=== PATIENT | female | born 1935 | race Caucasian/White ===

== ENCOUNTER 2017-01-16 09:32 | Inpatient (IN) | payer MEDICARE, OTHER ==
[~2017-01-16] VITALS: Ht 154.9 cm; Wt 59.5 kg
--- NOTE | ~2017-01-16 | DS ---
Discharge Summary [facility] [address] [place]. [address] NAME: ANYA WILLOUGHBY DAVIDE : 39 STATUS : DIS IN PAT#: [id number] AGE: 81 ADM/REG DATE : 01/16/17 MR#: [id number] REPORT SERV DATE: 01/27/17 DICTATED BY: KWAN MORRIS DATE: 01/27/17 REPORT STATUS : Draft TRANSCRIBED BY: MODL DATE: 01/27/17 ADMISSION DATE: 01/16/2017 DISCHARGE DATE: 01/27/2017 ADDENDUM: DISCHARGE DIAGNOSES: 1. Chronic hypoxic respiratory failure. 2. Healthcare-acquired pneumonia. 3. Dysphagia. 4. History of chronic obstructive pulmonary disease. 5. Amyloid angiopathy. 6. Coronary artery disease. 7. Deep vein thrombosis. 8. Heart failure with preserved ejection fraction. 9. Acute kidney injury on chronic kidney disease. 10.Urinary retention. 11.Microcytic anemia. 12.Anxiety and agitation. Please note that this is just an addendum to interim discharge summary dictated by Dr. Emiliano Holt. In summary, by the time I assumed care of this patient, the patient was already medically ready for discharge. The patient was eventually accepted to retirement facility where she will be discharged. Of note, the patient is discharged under a DNR status and the patient will continue to enjoy p.o. intake while she has failed swallow evaluation with the understanding of potential risk of recurrent aspiration pneumonia. It is understood that the patient will not be transferred back to the hospital in the event of natural appears to be taking place even related to possible aspiration pneumonia. There is nothing more to add to already excellent interim discharge summary dictated by Dr. Emiliano Holt. Total of 35 minutes spent in coordinating this patient's discharge today. [facility] [place] [facility] [place]PIETRO Kwan Morris MD / [id number] CC: MD Richardson Ro M.D.
--- NOTE | ~2017-01-16 | IDS ---
Interim Discharge Summary [facility] [address] [place]. [address] NAME: ANYA CLARKE OCTOBER : [birth year] STATUS : ADM IN [facility]#: [id number] AGE: 81 ADM/REG DATE : 01/16/17 MR#: [id number] REPORT SERV DATE: 01/26/17 DICTATED BY: JONNATHAN SARMIENTO DATE: 01/25/17 REPORT STATUS : Draft TRANSCRIBED BY: MODL DATE: 01/25/17 ADMISSION DATE: 01/16/2017 DISCHARGE DATE: DISCHARGE DIAGNOSES: 1. Chronic hypoxic respiratory failure. 2. Healthcare-acquired pneumonia. 3. History of chronic obstructive pulmonary disease. 4. Amyloid angiopathy. 5. Coronary artery disease. 6. Deep vein thrombosis. 7. Heart failure with preserved ejection fraction. 8. Acute kidney injury and chronic kidney disease. 9. Urinary retention. 10.Microcytic anemia. 11.Anxiety and agitation. IMAGIN. Chest x-ray on 01/16/2017 demonstrated diffuse interstitial and patchy alveolar infiltrates throughout both lungs. 2. Venous duplex of the lower extremities demonstrated DVT in the left popliteal vein which is nearly occlusive and a superficial thrombus in the right greater saphenous vein. 3. CTA of the chest demonstrated diffuse bilateral infiltrates or edema with pleural fluid, right greater than left, and COPD as well as nodular enlargement of the thyroid and no evidence for pulmonary emboli. 4. Swallowing study demonstrated deep laryngeal penetration with thin, nectar, and honey consistency. BRIEF HOSPITAL COURSE: Ms. Clarke is a 81-year-old female with a past medical history as stated above who presented as a transfer from [facility] [place] to the emergency department after she had a reported fever of over 100. She was recently admitted for pneumonia with hypoxic respiratory failure and placed in rehab following this. Of note, the family states that when she went to [facility], her swallowing evaluation was repeated and it was determined that she had no restrictions on her diet due to her swallowing. 1. Acute hypoxic respiratory failure secondary to healthcare-acquired pneumonia. The patient was treated initially with a combination of cefepime and vancomycin for healthcare-acquired pneumonia, this was deescalated to Ceftin to complete treatment of her healthcare-acquired pneumonia. At this time, she is still requiring 3 to 5 L of O2. 2. DVT. During the course of her hospitalization, her left lower extremity was noted to be significantly swollen. Doppler ultrasound demonstrated deep vein thrombosis. Plans for goals of care were discussed extensively with family, and given her history of amyloid angiopathy and concerns for potential intracerebral hemorrhage, an IVC filter was placed. 3. Heart failure with preserved ejection fraction. The patient did have an elevated BNP Interim Discharge Summary [facility] [id number] [place]. [address] NAME: ANYA CLARKE OCTOBER : 39 STATUS : ADM IN PAT#: [id number] AGE: 81 ADM/REG DATE : 01/16/17 MR#: [id number] REPORT SERV DATE: 01/26/17 DICTATED BY: JONNATHAN SARMIENTO DATE: 01/25/17 REPORT STATUS : Draft TRANSCRIBED BY: PIETRO DATE: 01/25/17 and prior echocardiogram did demonstrate some degree of diastolic dysfunction. She required some diuresis during her hospitalization here which was limited by her renal function. 4. ASHWINI on CKD. On arrival, the patient had a mildly elevated serum creatinine of 1.4 which resolved close to 1. 5. Urinary retention. The patient received a Nguyễn catheter on arrival for urinary retention; this was removed during her hospitalization. However, she became agitated and bladder scans noted over 200 mL in her bladder; at which time, a Nguyễn was restarted. She will likely need followup with Urology at a later date for her urinary retention. 6. Anxiety and agitation. Palliative Care was consulted as the patient continuously screams out that she needs help. However, on assisting her, she simply states that she wants to go home. She has received Ativan to assist in her anxiety from Palliative Care. I started Seroquel tonight due to her agitation. 7. Failed swallow study. The patient has been on a modified diet, was taking liquids; however, she persistently begs to have water. This was discussed at length with her son, John, as well as her sister, Jacqueline, who both agree that the patient's wishes to drink are consistent with what she would want if she were not confused. They have been advised of the risk of repeated aspiration pneumonia and the need for precautions; however, they state that if she has a pneumonia as a result of her aspiration that this is an acceptable risk, and she should not be transferred back to the hospital in the event of the natural appears to be taking place. She has also been made DNR as this discussion was also made regarding her care. DISPOSITION: Of note, the patient's sister Jacqueline has concerns over her son John and safety of discharge to his house. He has been repeatedly unavailable when we attempt to contact him, and she has concerns over his potential to become violent with other individuals and/or the possibility of drug use occurring within the house. Therefore, we are trying to get her to fdc facility in [place] which was our original goal given her need for significant physical therapy. [facility]/PIETRO LINDA SARMIENTO / [id number] CC: LINDA Holloway M.D.
--- NOTE | ~2017-01-16 | HP ---
History And Physical [place] [id number] [facility] [place]. [address] NAME: ANYA WILLOUGHBY OCTOBER : [birth year] STATUS : ADM IN [facility]#: [id number] AGE: 81 ADM/REG DATE : 01/16/17 MR#: [id number] REPORT SERV DATE: 01/16/17 DICTATED BY: YONG MAGUIRE DATE: 01/16/17 REPORT STATUS : Draft TRANSCRIBED BY: MODShantel DATE: 01/16/17 DATE OF ADMISSION: 01/16/2017 CHIEF COMPLAINT: Transfer from outside emergency department per family request with diagnosis of pneumonia. HISTORY OF PRESENT ILLNESS: This is a 81-year-old female with a medical history of amyloid angiopathy, history of CVA, history of melena, history of chronic anemia and history of type 2 diabetes and COPD and hypertension, history of lung cancer, status post lobectomy, history of urinary retention as well as a recent admission for bilateral pneumonia with hypoxic respiratory failure, who is accepted as a transfer from [facility] [place] at the Emergency Department there after she presented from her nursing facility this morning with onset of worsening hypoxic respiratory failure as well as a reported fever to 101 degrees Fahrenheit. The patient is accompanied by her son who helps relate some of the history. She has reportedly been living at the [facility] after her most recent discharge from [facility] at which time, she was treated for pneumonia. She does endorse a cough that is new over the past couple of days. It is productive of thick sputum though she denies any hemoptysis. As mentioned prior, she reportedly had a fever to 101 degrees Fahrenheit at her facility. She has chronic shortness of breath and says that this is unchanged and also has chronic hypoxic respiratory failure and does require supplemental oxygen at baseline. She specifically denies any chest pain currently or palpitations. She does have a headache but has not had any change in vision. She does arrive with an indwelling Nguyễn though she says this was placed at the outside emergency department and notes that over the past several days, she has had dysuria and frequency and carries a known diagnosis of urinary retention. She had been discharged with a Nguyễn catheter in place prior though her son reports that this had been removed at the nursing facility somewhat recently. She currently denies any diarrhea or vomiting but does have a little bit of nausea and denies any confusion in the setting of her history of encephalopathy. She does endorse swelling of the lower extremities with edema present bilaterally as well as orthopnea that is unchanged from her baseline. At the [facility] Emergency Department, she was found to have a leukocytosis with a white blood cell count of 18 and was also found to have an elevated BNP of 665 as well as a troponin of less than 0.03. Reportedly a chest x-ray was obtained and per the physician I spoke with, it was concerning for pneumonia, so she was administered ceftriaxone and azithromycin. Given her elevated BNP and her lower extremity edema, she was also administered 40 mg of IV Lasix prior to transfer. REVIEW OF SYMPTOMS: A 10-point review of systems was performed and was negative except that is stated in the history of present illness. PAST MEDICAL HISTORY: She has a history of coronary artery disease with stent placement in the past. She had been on Plavix and aspirin in the past though this has been discontinued History And Physical [address] [address] NAME: ANYA WILLOUGHBY OCTOBER : [birth year] STATUS : ADM IN [facility]#: [id number] AGE: 81 ADM/REG DATE : 01/16/17 MR#: [id number] REPORT SERV DATE: 01/16/17 DICTATED BY: YONG MAGUIRE DATE: 01/16/17 REPORT STATUS : Draft TRANSCRIBED BY: PIETRO DATE: 01/16/17 indefinitely as she has amyloid angiopathy per Neurology as it is at a very high risk for brain bleed. Insulin dependent diabetes; bilateral lower extremity neuropathic pain; hypothyroidism; history of lung cancer status post lobectomy; history of a right frontoparietal embolic stroke; history of right-sided carotid stenosis status post recent carotid endarterectomy; history of CKD stage 3 with a baseline creatinine prior at 1.4 to 1.5; hypertension; GERD; hyperlipidemia; possible history of seizure and was started on Keppra for that; history of COPD; history of rectal cancer; and history of recurrent encephalopathy as well as a recent history of bilateral pneumonia. PAST SURGICAL HISTORY: Includes a left upper lobectomy and right carotid endarterectomy, a thyroidectomy, and a rectal surgery. ALLERGIES: INCLUDE LEVAQUIN; LATEX; CODEINE; AND SINCE HER LAST ADMISSION, ANY SORT OF BLOOD THINNERS INCLUDING HEPARIN, ASPIRIN, PLAVIX, ETC. MEDICATIONS: Prior to admission, acetaminophen 650 mg suppository every 4 hours as needed for fever or headache; 10 mg of amlodipine daily; 80 mg of atorvastatin nightly; budesonide suspension inhaled 2 times daily; DuoNebs four times a day; gabapentin 300 mg at bedtime; 12.5 mg of hydrochlorothiazide daily; Keppra solution 100 mg/mL with 7.5 mL by mouth 2 times a day; 30 mg of lansoprazole capsule daily; 3 mg of melatonin nightly; 100 mg of metoprolol b.i.d.; milk of magnesia 30 mL every 24 hours as needed for constipation; guaifenesin 400 mg every 12 hours as needed for cough; nitroglycerin tablets sublingual p.r.n. for chest pain; sliding scale NovoLog; 20 mEq of potassium chloride extended release 1 tablet by mouth 2 times a day for abnormal labs; methimazole 5 mg by mouth 1 time a day; thiamine 100 mg by mouth daily; vitamin D tablet 1000 units 1 tablet by mouth 1 time a day; and ceftriaxone and azithromycin per the outside emergency department. SOCIAL HISTORY: She is residing at [facility]. She has a history of tobacco abuse, quit in the . She has not used any drugs or alcohol. 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 FAMILY HISTORY: The patient's father had pancreatic cancer. Sister had stomach cancer. PHYSICAL EXAMINATION: VITAL SIGNS: On admission here, afebrile, temperature is 97.4, blood pressure 153/70, heart rate 82, respiratory rate 22, and saturating 96% on 3 L. GENERAL: The patient is resting in bed with nasal cannula in place, in no acute distress. Chronically ill-appearing. HEENT: Extraocular movements are intact. Sclerae are anicteric. CARDIOVASCULAR: Regular rate and rhythm. There are no rubs, murmurs, or gallops. PULMONARY: Decreased breath sounds bilaterally with crackles at the left, greater than right base with scattered wheezes throughout. ABDOMEN: Soft and obese and is nontender and nondistended with no organomegaly noted. EXTREMITIES: There is bilateral 2+ pitting edema extending to the knees. SKIN: Skin exam is normal without sign of breakdown on my exam or rash. NEURO EXAM: She is alert and oriented x3 with no focal deficits. Cranial nerves 2 though 12 were grossly intact. History And Physical [address] [address] NAME: ANYA WILLOUGHBY : [birth year] STATUS : ADM IN [facility]#: [id number] AGE: 81 ADM/REG DATE : 01/16/17 MR#: [id number] REPORT SERV DATE: 01/16/17 DICTATED BY: YONG MAGUIRE DATE: 01/16/17 REPORT STATUS : Draft TRANSCRIBED BY: MODL DATE: 01/16/17 LABS: White blood cell count of 11.7 here, down from 18 at the outside emergency department, hemoglobin of 11, hematocrit of 35.5, and platelets of 211. INR is 1.1. Procalcitonin is 0.09. Sodium is 139, potassium 4.7, chloride 102, bicarb is 29, BUN is 13, and creatinine is 1.21. Her lactate is 1.3. Glucose is 219. Magnesium 1.6, phosphorus 3.7, albumin is 2.2, total bilirubin is 0.4, alkaline phosphatase 112, ALT is 10, AST is 19, and BNP 681. Troponin is less than 0.02. IMAGING: Chest x-ray is currently pending at the time of this dictation. ASSESSMENT AND PLAN: 1. Worsened hypoxic respiratory failure in the setting of reported fever and leukocytosis at outside facility, concerning for healthcare associated pneumonia. As noted above, the patient presented to the outside emergency department with concern for pneumonia and was treated for a community-acquired pneumonia though given her recent hospital admission with pneumonia, she certainly is at risk for healthcare-associated pneumonia. Therefore we will obtain blood cultures, sputum culture. We will obtain a chest x-ray and for now we will switch her antibiotics to vancomycin and cefepime to cover for resistant organisms. We will rule out other sources of infection as well with urinalysis. 2. Chronic hypoxic respiratory failure. Reportedly she was found to have worsened hypoxic respiratory failure this morning in a person saturating in the 80% at her nursing facility. As above we will be treating her for HCAP though we will follow up the chest x-ray to be certain that there is a pneumonia present. Her procalcitonin is not impressive and currently she does not have a leukocytosis though reportedly she had one this morning. She does have a BNP in the 600s which on review of the records, it appears it has been elevated frequently in the past. In fact, in December 2016, her BNP was over 1000. Around that same time, she did undergo an echocardiogram which revealed a left ventricular systolic function that was intact at 63% with a dilated left atrium and intact right ventricular systolic function and mild to moderate mitral regurgitation. She did receive 40 mg of IV Lasix at the outside hospital. For now, we will see how she does with that and keep a close eye on her and again we will follow up on the chest x-ray. She may need more diuretics and she may need a repeat echocardiogram just to be certain that her mitral regurgitation has not worsened given her elevated BNP but we will hold off on that for now. 3. COPD. Again this is associated with her chronic hypoxic respiratory failure. We will continue her on a bronchodilator protocol for now and continue her supplemental oxygen. 4. History of stroke with concern for amyloid angiopathy. Per Neurology's recommendations at her last admission, we will avoid any sort of anticoagulants including her prior aspirin and Plavix which were discontinued after the last admission as well as subcutaneous heparin. We will have her continue to work with PT and OT while she is here. 5. Diabetes mellitus insulin dependent. We will continue her on sliding scale insulin for now. 6. Hypertension. We will continue with her home medications. 7. Urinary retention present on admission. She arrived with a Nguyễn in place and we will leave that for now while we sort things out though we will attempt to give bladder History And Physical [address] [address] NAME: ANYA WILLOUGHBY OCTOBER : [birth year] STATUS : ADM IN [facility]#: [id number] AGE: 81 ADM/REG DATE : 01/16/17 MR#: [id number] REPORT SERV DATE: 01/16/17 DICTATED BY: YONG MAGUIRE DATE: 01/16/17 REPORT STATUS : Draft TRANSCRIBED BY: PIETRO DATE: 01/16/17 training. She was supposed to follow up with Urology after her last discharge and we will have to look into that to see if that occurred. 8. Finally, I did have a discussion with the patient and her son regarding her code status. She had filled out a durable DNR at her last visit and therefore she will continue with that wish. [facility]AR[facility]/PIETRO Yong Maguire MD / [id number] CC: MD Richardson Cheney M.D.
--- NOTE | ~2017-01-16 | OP ---
Record Of Operation [facility] [address] [place]. [address] NAME: ANYA WILLOUGHBY : 39 STATUS : ADM IN [facility]#: [id number] AGE: 81 ADM/REG DATE : 01/16/17 MR#: [id number] REPORT SERV DATE: 01/25/17 DICTATED BY: JUAN FLOOD DATE: 01/24/17 REPORT STATUS : Draft TRANSCRIBED BY: MODL DATE: 01/24/17 DATE OF PROCEDURE: 01/24/2017 PREOPERATIVE DIAGNOSIS: Deep vein thrombosis with contraindication to anticoagulation. POSTOPERATIVE DIAGNOSIS: Deep vein thrombosis with contraindication to anticoagulation. SURGERY PERFORMED: Placement of inferior vena cava Michel filter. SURGEON: Juan Flood M.D. DESCRIPTION OF PROCEDURE: The patient was placed under IV sedation. Right groin was prepped and draped in a sterile fashion. Ultrasound was used to access the right femoral vein. This was done using a micropuncture needle, wire, and sheath. A 0.035 wire was placed into the inferior vena cava. Incision was made at the entry point. The sheath for the Lamont filter placed over the wire into the inferior vena cava. A venogram done on the inferior vena cava showing this to be widely patent. The level of the renal veins were easily identified. The filter was then placed through the sheath and deployed just below the renal vein. This was deployed without difficulty with good alignment. The sheath was then removed from the groin. Pressure held until hemostasis noted then dry dressing was applied. ESTIMATED BLOOD LOSS: 20 mL. Taken to the recovery room in good condition. MG/PIETRO Juan Flood M.D. / [id number] CC: LINDA Holloway M.D.
[~2017-01-16 09:32] MED LIST: ASAB PO; BACTROINT TOP; BUM1 PO; CALTRA600D PO; CALTRAT600 PO; CLARIT10 PO; COZ50 PO; COZAAR100 MG PO; DIOVAN320 MG PO; DSS PO; DUONEB INH; FLONASE NAS; GLUCOTRO10 PO; GLUCXL10 PO; GLUCXL5 PO; HALF81 PO; HEMOCYTET PO; INTUNIV2 MG PO; K-TABS10 MEQ PO; KEPPRA500 PO; LANTUS SC; LIPITOR80 MG PO; LOP100 PO; LOPID6 PO; LOVENOX40 SC; MAX25 PO; METHIMAZOLE5 MG OR; METHIMAZOLE5 MG PO; MOMUD PO; NEUR600 PO; NITROSTAT0.4 MG SL; NOVOLOG SC; NTG150 SL; PLAVIX PO; PREV30 PO; PRILO PO; PROTONIX PO; PULRESP.5 INH; T PO; TAPAZOLE5 MG PO; TENEX2 MG PO; TRIAMTERENE-HCTZ PO; VITAMIN D1000 UNI1 PO; [UNRECOGNIZED DRUG - REMARK]
[2017-01-16 13:37] LABS: BASOPHILS 0.1 %; BASOPHILS ABSOLUTE 0.01 10/3/uL (0.0-0.16); EOSINOPHILS 0.5 %; EOSINOPHILS ABSOLUTE 0.06 10/3/uL (0.0-0.53); HEMATOCRIT 35.5 % (36.0-48.0); IMMATURE GRANULOCYTES 0.3 %; IMMATURE GRANULOCYTES ABSOLUTE 0.04 10/3/uL (0.0-0.11); LYMPHOCYTES 3.2 %; LYMPHOCYTES ABSOLUTE 0.37 10/3/uL (0.67-4.30); MEAN CORPUSCULAR HEMOGLOB 25.3 pg (26.0-34.0); MEAN CORPUSCULAR VOLUME 81.6 fL (80-100); MEAN PLATELET VOLUME 11.6 fL (9.2-13.0); MONOCYTES 0.9 %; NEUTROPHILS ABSOLUTE 11.11 10/3/uL (2.02-8.40); PLATELET COUNT 211 10/3/uL (150-400); RBC DISTRIBUTION WIDTH 16.6 % (12.0-16.0); RED CELL COUNT 4.35 10/6/uL (4.0-5.6); WHITE BLOOD CELLS 11.7 10/3/uL (4.5-10.5)
[2017-01-16 13:38] LABS: MANUAL DIFF NO %
[2017-01-16 13:47] LABS: PARTIAL THROMBO TIME 30.3 SEC (22.5-37.2)
[2017-01-16 13:48] LABS: INTERNATIONAL NORMAL RATI 1.1 UNITS (-); PROTIME (NOT ORD) 13.9 SEC (12.0-14.5)
[2017-01-16 13:55] LABS: A/G RATIO 0.5 (0.7-1.9); ALBUMIN 2.2 G/DL (3.5-5.0); ALKALINE PHOSPHATASE 112 U/L (45-117); BUN (BLOOD UREA NITROGEN) 13 MG/DL (6-23); CALCIUM, SERUM 8.5 MG/DL (8.5-10.4); CHLORIDE, SERUM 102 MMOL/L (96-112); CO2 (CARBON DIOXIDE) 29 MMOL/L (24-34); CREATININE 1.21 MG/DL (0.55-1.02); GFR AFRICAN AMERICAN 49 ML/MIN (>=60); GFR NON AFRICAN AMERICAN 43 ML/MIN (>=60); GLOBULIN 4.4 G/DL (2.5-4.1); GLUCOSE, SERUM 219 MG/DL (60-99); PHOSPHORUS, SERUM 3.7 MG/DL (2.5-4.5); POTASSIUM, SERUM 4.7 MMOL/L (3.5-5.3); SGOT(AST) 19 U/L (5-40); SGPT(ALT) 10 U/L (5-65); SODIUM, SERUM 139 MMOL/L (135-148); TOTAL BILIRUBIN 0.4 MG/DL (0-1.2); TOTAL PROTEIN 6.6 G/DL (6.0-8.5); TROPONIN I <0.02 NG/ML (<0.05)
[2017-01-16 14:10] LABS: PROCALCITONIN 0.09 ng/mL (<0.5)
[2017-01-16 16:40] LABS: ALLENS TEST Pos; BE (BASE EXCESS) 2.1 MEQ/L (0 +/- 2.5); CARBOXYHEMOGLOBIN 0.7 % (0-3); DEVICE nc@ 2.5l; HCO3 (ACTUAL BICARBONATE) 25.5 MEQ/L (23-27); HEMOBLOGIN CONTENT 12.3 G/DL (12-16); INSTRUMENT SERIAL # 35151; METHEMOGLOBIN 0.5 % (0-3); O2 CONTENT 15.9 VOL% (18-24); PCO2 (CO2 TENSION) 36 MMHG (35-45); PO2 (O2 TENSION) 66 MMHG (79-93); SAMPLE Arterial; pH 7.47 (7.37-7.43)
[2017-01-16] MEDS ORDERED: ACETSUP650 PR (17:14)
[2017-01-16] MEDS ORDERED: NORV10 PO (17:15)
[2017-01-16] MEDS ORDERED: LIPITOR80 MG PO (17:15)
[2017-01-16] MEDS ORDERED: PULRESP.5 INH (17:16)
[2017-01-16] MEDS ORDERED: DUONEB INH (17:16)
[2017-01-16] MEDS ORDERED: PREV30 PO (17:17)
[2017-01-16] MEDS ORDERED: MICROZIDE PO (17:17)
[2017-01-16] MEDS ORDERED: NEUR300 PO (17:17)
[2017-01-16] MEDS ORDERED: MELA3 PO (17:17)
[2017-01-16] MEDS ORDERED: KEPPRAUDL PO (17:17)
[2017-01-16] MEDS ORDERED: FENESIN IR400 MG PO (17:18)
[2017-01-16] MEDS ORDERED: MOMUD PO (17:18)
[2017-01-16] MEDS ORDERED: LOP100 PO (17:18)
[2017-01-16] MEDS ORDERED: NITROSTAT0.4 MG SL (17:18)
[2017-01-16] MEDS ORDERED: B1100 PO (17:19)
[2017-01-16] MEDS ORDERED: TAPAZOLE5 MG PO (17:19)
[2017-01-16] MEDS ORDERED: VITAMIN D1000 UNI1 PO (17:19)
[2017-01-16] MEDS ORDERED: KLOR-CON M2020 MEQ PO (17:19)
[2017-01-16] MEDS ORDERED: NOVOLOG SC (17:19)
[2017-01-16] MEDS ORDERED: ZOFRAN4 PO (17:19)
[2017-01-17 05:08] LABS: BASOPHILS 0.1 %; BASOPHILS ABSOLUTE 0.01 10/3/uL (0.0-0.16); EOSINOPHILS 0.1 %; EOSINOPHILS ABSOLUTE 0.01 10/3/uL (0.0-0.53); HEMOGLOBIN 9.8 g/dL (12.0-16.0); IMMATURE GRANULOCYTES 0.2 %; IMMATURE GRANULOCYTES ABSOLUTE 0.02 10/3/uL (0.0-0.11); LYMPHOCYTES 7.7 %; MEAN CORPUS HGB CONC 30.8 g/dL (32.0-36.0); MEAN CORPUSCULAR HEMOGLOB 25.3 pg (26.0-34.0); MEAN CORPUSCULAR VOLUME 82.2 fL (80-100); MEAN PLATELET VOLUME 11.4 fL (9.2-13.0); MONOCYTES 7.8 %; MONOCYTES ABSOLUTE 0.71 10/3/uL (0.21-1.20); NEUTROPHILS 84.1 %; NEUTROPHILS ABSOLUTE 7.66 10/3/uL (2.02-8.40); PLATELET COUNT 201 10/3/uL (150-400); RBC DISTRIBUTION WIDTH 16.8 % (12.0-16.0); RED CELL COUNT 3.87 10/6/uL (4.0-5.6); WHITE BLOOD CELLS 9.1 10/3/uL (4.5-10.5)
[2017-01-17 05:09] LABS: CALCIUM, SERUM 8.2 MG/DL (8.5-10.4); CHLORIDE, SERUM 101 MMOL/L (96-112); CO2 (CARBON DIOXIDE) 32 MMOL/L (24-34); CREATININE 1.25 MG/DL (0.55-1.02); GFR AFRICAN AMERICAN 47 ML/MIN (>=60); GFR NON AFRICAN AMERICAN 41 ML/MIN (>=60); HEMATOCRIT 31.8 % (36.0-48.0); MANUAL DIFF NO %; POTASSIUM, SERUM 4.7 MMOL/L (3.5-5.3); SODIUM, SERUM 141 MMOL/L (135-148)
[2017-01-17 05:10] LABS: BUN (BLOOD UREA NITROGEN) 18 MG/DL (6-23); GLUCOSE, SERUM 156 MG/DL (60-99)
[2017-01-17 17:27] LABS: BUN (BLOOD UREA NITROGEN) 18 MG/DL (6-23); CALCIUM, SERUM 8.6 MG/DL (8.5-10.4); CHLORIDE, SERUM 96 MMOL/L (96-112); CO2 (CARBON DIOXIDE) 32 MMOL/L (24-34); CREATININE 1.42 MG/DL (0.55-1.02); GFR AFRICAN AMERICAN 41 ML/MIN (>=60); GFR NON AFRICAN AMERICAN 35 ML/MIN (>=60); GLUCOSE, SERUM 164 MG/DL (60-99); POTASSIUM, SERUM 3.9 MMOL/L (3.5-5.3); SODIUM, SERUM 137 MMOL/L (135-148)
[2017-01-18 05:08] LABS: BASOPHILS 0.3 %; BASOPHILS ABSOLUTE 0.03 10/3/uL (0.0-0.16); HEMOGLOBIN 9.3 g/dL (12.0-16.0); IMMATURE GRANULOCYTES 0.2 %; IMMATURE GRANULOCYTES ABSOLUTE 0.02 10/3/uL (0.0-0.11); LYMPHOCYTES 13.5 %; LYMPHOCYTES ABSOLUTE 1.36 10/3/uL (0.67-4.30); MEAN CORPUSCULAR HEMOGLOB 25.5 pg (26.0-34.0); MEAN CORPUSCULAR VOLUME 82.2 fL (80-100); MONOCYTES 7.4 %; MONOCYTES ABSOLUTE 0.75 10/3/uL (0.21-1.20); NEUTROPHILS 76.6 %; NEUTROPHILS ABSOLUTE 7.72 10/3/uL (2.02-8.40); PLATELET COUNT 174 10/3/uL (150-400); RBC DISTRIBUTION WIDTH 16.5 % (12.0-16.0); RED CELL COUNT 3.65 10/6/uL (4.0-5.6); WHITE BLOOD CELLS 10.1 10/3/uL (4.5-10.5)
[2017-01-18 05:20] LABS: MANUAL DIFF NO %
[2017-01-18 05:31] LABS: BUN (BLOOD UREA NITROGEN) 20 MG/DL (6-23); CALCIUM, SERUM 8.4 MG/DL (8.5-10.4); CHLORIDE, SERUM 100 MMOL/L (96-112); CO2 (CARBON DIOXIDE) 33 MMOL/L (24-34); CREATININE 1.26 MG/DL (0.55-1.02); GFR AFRICAN AMERICAN 47 ML/MIN (>=60); GFR NON AFRICAN AMERICAN 40 ML/MIN (>=60); POTASSIUM, SERUM 3.9 MMOL/L (3.5-5.3); SODIUM, SERUM 141 MMOL/L (135-148)
[2017-01-18 05:36] LABS: GLUCOSE, SERUM 109 MG/DL (60-99)
[2017-01-19 06:43] LABS: BASOPHILS 0.5 %; BASOPHILS ABSOLUTE 0.05 10/3/uL (0.0-0.16); EOSINOPHILS 4.4 %; EOSINOPHILS ABSOLUTE 0.43 10/3/uL (0.0-0.53); IMMATURE GRANULOCYTES 0.2 %; IMMATURE GRANULOCYTES ABSOLUTE 0.02 10/3/uL (0.0-0.11); LYMPHOCYTES ABSOLUTE 1.07 10/3/uL (0.67-4.30); MEAN CORPUSCULAR HEMOGLOB 25.6 pg (26.0-34.0); MEAN CORPUSCULAR VOLUME 82.6 fL (80-100); MEAN PLATELET VOLUME 11.5 fL (9.2-13.0); MONOCYTES ABSOLUTE 0.78 10/3/uL (0.21-1.20); NEUTROPHILS 75.9 %; NEUTROPHILS ABSOLUTE 7.34 10/3/uL (2.02-8.40); PLATELET COUNT 186 10/3/uL (150-400); RBC DISTRIBUTION WIDTH 16.7 % (12.0-16.0); WHITE BLOOD CELLS 9.7 10/3/uL (4.5-10.5)
[2017-01-19 06:45] LABS: HEMATOCRIT 35.5 % (36.0-48.0); MANUAL DIFF NO %
[2017-01-19 07:03] LABS: CALCIUM, SERUM 8.7 MG/DL (8.5-10.4); CHLORIDE, SERUM 104 MMOL/L (96-112); CO2 (CARBON DIOXIDE) 34 MMOL/L (24-34); CREATININE 1.16 MG/DL (0.55-1.02); GFR AFRICAN AMERICAN 52 ML/MIN (>=60); GFR NON AFRICAN AMERICAN 45 ML/MIN (>=60); GLUCOSE, SERUM 104 MG/DL (60-99); POTASSIUM, SERUM 4.1 MMOL/L (3.5-5.3); SODIUM, SERUM 143 MMOL/L (135-148)
[2017-01-19 07:04] LABS: BUN (BLOOD UREA NITROGEN) 16 MG/DL (6-23)
[2017-01-20 07:44] LABS: BUN (BLOOD UREA NITROGEN) 16 MG/DL (6-23); CALCIUM, SERUM 8.1 MG/DL (8.5-10.4); CHLORIDE, SERUM 103 MMOL/L (96-112); CO2 (CARBON DIOXIDE) 31 MMOL/L (24-34); CREATININE 1.04 MG/DL (0.55-1.02); GFR AFRICAN AMERICAN 59 ML/MIN (>=60); GFR NON AFRICAN AMERICAN 51 ML/MIN (>=60); GLUCOSE, SERUM 121 MG/DL (60-99); POTASSIUM, SERUM 3.7 MMOL/L (3.5-5.3); SODIUM, SERUM 142 MMOL/L (135-148)
[2017-01-21 05:36] LABS: BUN (BLOOD UREA NITROGEN) 16 MG/DL (6-23); CALCIUM, SERUM 8.4 MG/DL (8.5-10.4); CHLORIDE, SERUM 102 MMOL/L (96-112); CO2 (CARBON DIOXIDE) 32 MMOL/L (24-34); CREATININE 1.29 MG/DL (0.55-1.02); GFR AFRICAN AMERICAN 46 ML/MIN (>=60); GFR NON AFRICAN AMERICAN 39 ML/MIN (>=60); GLUCOSE, SERUM 108 MG/DL (60-99); POTASSIUM, SERUM 3.3 MMOL/L (3.5-5.3); SODIUM, SERUM 142 MMOL/L (135-148)
[2017-01-22 07:17] LABS: BUN (BLOOD UREA NITROGEN) 17 MG/DL (6-23); CALCIUM, SERUM 8.2 MG/DL (8.5-10.4); CHLORIDE, SERUM 104 MMOL/L (96-112); CO2 (CARBON DIOXIDE) 34 MMOL/L (24-34); CREATININE 1.38 MG/DL (0.55-1.02); GFR AFRICAN AMERICAN 42 ML/MIN (>=60); GFR NON AFRICAN AMERICAN 36 ML/MIN (>=60); GLUCOSE, SERUM 114 MG/DL (60-99); POTASSIUM, SERUM 3.5 MMOL/L (3.5-5.3); SODIUM, SERUM 144 MMOL/L (135-148)
[2017-01-24 07:01] LABS: BUN (BLOOD UREA NITROGEN) 18 MG/DL (6-23); CALCIUM, SERUM 8.7 MG/DL (8.5-10.4); CHLORIDE, SERUM 104 MMOL/L (96-112); CO2 (CARBON DIOXIDE) 31 MMOL/L (24-34); CREATININE 1.15 MG/DL (0.55-1.02); GFR AFRICAN AMERICAN 52 ML/MIN (>=60); GFR NON AFRICAN AMERICAN 45 ML/MIN (>=60); GLUCOSE, SERUM 100 MG/DL (60-99); SODIUM, SERUM 142 MMOL/L (135-148)
== END 2017-01-27 11:37 | DRG 166 ==
LOC: ENRESERVTM → ENRESERVDT → ENRESERV → 6NO 11:25
PROVIDERS: Hospitalist; Internal Medicine; Surgery Vascular Surgery
PROC: B5091ZZ Plain Radiography of Inferior Vena Cava using Low Osmolar Contrast (ICD-10-PCS; 2017-01-24)
PROC: 06H03DZ Insertion of Intraluminal Device into Inferior Vena Cava, Percutaneous Approach (ICD-10-PCS; principal; 2017-01-24 11:00)
DX: J96.21 Acute and chronic respiratory failure with hypoxia (principal); J18.9 Pneumonia, unspecified organism; I50.33 Acute on chronic diastolic (congestive) heart failure; N17.9 Acute kidney failure, unspecified; I82.432 Acute embolism and thrombosis of left popliteal vein; I82.811 Embolism and thrombosis of superficial veins of right lower extremity; E11.9 Type 2 diabetes mellitus without complications; J44.9 Chronic obstructive pulmonary disease, unspecified; Z51.5 Encounter for palliative care; I25.10 Atherosclerotic heart disease of native coronary artery without angina pectoris; Y95 Nosocomial condition; F41.9 Anxiety disorder, unspecified; R33.9 Retention of urine, unspecified; Z85.118 Personal history of other malignant neoplasm of bronchus and lung; Z90.2 Acquired absence of lung [part of]; Z86.73 Personal history of transient ischemic attack (TIA), and cerebral infarction without residual deficits; Z95.5 Presence of coronary angioplasty implant and graft; Z79.4 Long term (current) use of insulin; Z99.81 Dependence on supplemental oxygen; Z91.040 Latex allergy status
CPT/HCPCS: 36600; 37191; 71010; 71275; 74230; 80048; 80053; 80202; 82805; 82962; 83605; 83735; 83880; 84100; 84132; 84145; 84484; 85025; 85610; 85730; 87040; 87205; 87449; 92611-GN; 93005; 93308; 93321; 93970; 94640; 97110-GO; 97110-GP; 97116-GP; 97162-GP; 97165-GO; 97530-GO; 97535-GO; A9270-GY; C1769; C1880; C1894; G8978-CK-GP; G8979-CI-GP; G8987-CK-GO; G8988-CJ-GO; G8996-CK-GN; G8997-CK-GN; G8998-CK-GN; J0692; J1940; J2250; J2405; J3010; J3370; Q9967